=== PATIENT | male | born 1975 ===

== ENCOUNTER 2021-02-26 19:00 | Outpatient (CLI) | payer MEDICARE, MEDICAID | END 2021-02-26 19:01 | disposition home or self-care (01) | LOC: SLEEPLAB 19:00 | PROVIDERS: ATTEND Nurse Practitioner | DX: G47.33 Obstructive sleep apnea (adult) (pediatric) (principal); R35.1 Nocturia; E11.9 Type 2 diabetes mellitus without complications; F84.0 Autistic disorder; K21.9 Gastro-esophageal reflux disease without esophagitis; I49.8 Other specified cardiac arrhythmias; E66.9 Obesity, unspecified; Z68.38 Body mass index [BMI] 38.0-38.9, adult | CPT/HCPCS: 95810 ==